=== PATIENT | female | born 1980 | race Caucasian/White ===

== ENCOUNTER 2018-11-15 14:45 | Emergency (ER) | payer OTHER ==
[~2018-11-15] VITALS: Ht 154.9 cm; Wt 47.6 kg
[2018-11-15 14:57] LABS: URINE BILIRUBIN NEGATIVE (Negative); URINE BLOOD 1+ (Negative); URINE CLARITY CLEAR; URINE COLOR YELLOW; URINE GLUCOSE-RANDOM NEGATIVE (Negative); URINE KETONES NEGATIVE (Negative); URINE NITRITE-REFLEX NEGATIVE (Negative); URINE PROTEIN NEGATIVE (Negative); URINE SPECIFIC GRAVITY 1.015 (1.005-1.030); URINE UROBILINOGEN 0.2 E.U./dl (0.2-1.0)
[2018-11-15 14:58] LABS: URINE LEUKOCYTES-REFLEX 3+ (Negative)
[2018-11-15 15:06] LABS: CASTS None Seen /LPF (None Seen); CRYSTALS None Seen /LPF (None Seen); SQUAMOUS 0-3 Few /LPF (0-3)
[2018-11-15 15:07] LABS: URINE RBC 0-2 Rare /HPF (0-2)
[2018-11-15] MEDS ORDERED: MACROBID 100 M100 M2 PO (15:48)
[2018-11-15] MEDS ORDERED: ERYTHROMYCIN E3.5 G3 OPHTHALMIC (15:53)
[2018-11-15 15:54] VITALS: BP 124/91
== END 2018-11-15 15:55 | disposition home or self-care (01) ==
LOC: M.ERS 14:45
PROVIDERS: Nurse Practitioner Family
DX: N39.0 Urinary tract infection, site not specified (principal); H10.33 Unspecified acute conjunctivitis, bilateral; Z20.2 Contact with and (suspected) exposure to infections with a predominantly sexual mode of transmission